=== PATIENT | female | born 1960 | race Caucasian/White ===

== ENCOUNTER → 2017-06-16 | Outpatient (CLI) | payer OTHER | LOC: M WUC 16:55 | DX: M25.551 Pain in right hip (principal) ==

== ENCOUNTER → 2017-09-04 | Outpatient (REF) | payer OTHER ==
[2017-09-04 21:49] LABS: AMORPHOUS SEDIMENT SMALL (NEGATIVE); APPEARANCE, URINE CLOUDY (CLEAR); BACTERIA, URINE AUTO 1+ (NEGATIVE); BILIRUBIN, URINE AUTO NEGATIVE (NEGATIVE); BLOOD, URINE BLOOD 3+ (NEGATIVE); COLOR, URINE YELLOW (YELLOW); GLUCOSE, URINE (UA) AUTO NEGATIVE (NEGATIVE); KETONE, URINE AUTO NEGATIVE (NEGATIVE); LEUKOCYTE ESTERASE, URINE AUTO 3+ (NEGATIVE); NITRITE, URINE AUTO NEGATIVE (NEGATIVE); PROTEIN, URINE AUTO 1+ mg/dL (NEGATIVE); RBC, URINE AUTO TNTC /HPF (0-3); SPECIFIC GRAVITY URINE AUTO 1.006 (1.002-1.035); SQUAMOUS EPITHELIAL CELL UR AU 2 /HPF (0-6); UROBILINOGEN, URINE AUTO 0.2 mg/dL (0.0-2.0); WBC, URINE AUTO TNTC /HPF (0-3)
== END ==
LOC: M LAB REF 09:23
DX: N39.0 Urinary tract infection, site not specified (principal)

== ENCOUNTER → 2017-10-16 | Outpatient (CLI) | payer OTHER | LOC: M WUC 16:27 | DX: J47.9 Bronchiectasis, uncomplicated (principal) ==

== ENCOUNTER → 2017-12-19 | Outpatient (REF) | payer OTHER | LOC: M LAB REF 18:04 | DX: R30.0 Dysuria (principal) ==

== ENCOUNTER → 2017-12-30 | Outpatient (CLI) | payer OTHER ==
[2017-12-30 10:37] LABS: HEMOGLOBIN 13.5 g/dl (12.0-15.5); MEAN CORPUSCULAR HEMOGLOBIN 28.8 pg (27.0-33.0); MEAN CORPUSCULAR HGB CONC 32.1 g/dl (32.0-36.5); MEAN CORPUSCULAR VOLUME 89.6 fl (80.0-96.0); PLATELET COUNT, AUTOMATED 261 10^3/uL (150-450); RED BLOOD COUNT 4.69 10^6/uL (4.00-5.40); RED CELL DISTRIBUTION WIDTH 13.2 % (11.5-14.5)
[2017-12-30 10:39] LABS: APPEARANCE, URINE CLEAR (CLEAR); BACTERIA, URINE AUTO NEGATIVE (NEGATIVE); BILIRUBIN, URINE AUTO NEGATIVE (NEGATIVE); BLOOD, URINE BLOOD NEGATIVE (NEGATIVE); COLOR, URINE STRAW (YELLOW); GLUCOSE, URINE (UA) AUTO NEGATIVE (NEGATIVE); KETONE, URINE AUTO NEGATIVE (NEGATIVE); LEUKOCYTE ESTERASE, URINE AUTO NEGATIVE (NEGATIVE); NITRITE, URINE AUTO NEGATIVE (NEGATIVE); PROTEIN, URINE AUTO NEGATIVE (NEGATIVE); RBC, URINE AUTO 0 /HPF (0-3); SPECIFIC GRAVITY URINE AUTO 1.005 (1.002-1.035); SQUAMOUS EPITHELIAL CELL UR AU 0 /HPF (0-6); UROBILINOGEN, URINE AUTO 0.2 mg/dL (0.0-2.0); WBC, URINE AUTO 0 /HPF (0-3)
[2017-12-30 11:01] LABS: ALBUMIN 3.9 GM/DL (3.2-5.2); ALBUMIN/GLOBULIN RATIO 1.34 (1.00-1.93); ALKALINE PHOSPHATASE 68 U/L (45-117); ALT/SGPT 25 U/L (12-78); ANION GAP 7 MEQ/L (8-16); AST/SGOT 27 U/L (7-37); BILIRUBIN,TOTAL 0.4 MG/DL (0.2-1.0); BLOOD UREA NITROGEN 12 MG/DL (7-18); CALCIUM LEVEL 9.1 MG/DL (8.5-10.1); CARBON DIOXIDE LEVEL 31 MEQ/L (21-32); CHLORIDE LEVEL 103 MEQ/L (98-107); CHOLESTEROL LEVEL 167 MG/DL (<200); CHOLESTEROL RISK RATIO 2.879 (<5); CREATININE FOR GFR 0.69 MG/DL (0.55-1.30); GLOMERULAR FILTRATION RATE > 60.0 (>51); GLUCOSE, FASTING 85 MG/DL (70-100); HDL CHOLESTEROL 58 MG/DL (>40); IRON (FE) 87 UG/DL (50-170); LDL CHOLESTEROL 92 MG/DL (<100); NON-HDL-C 109 MG/DL; SODIUM LEVEL 141 MEQ/L (136-145); TOTAL PROTEIN 6.8 GM/DL (6.4-8.2); TRIGLYCERIDES LEVEL 83 MG/DL (<150)
[2017-12-30 11:06] LABS: TOTAL 25(OH) VITAMIN D 17.4 NG/ML (30.0-100.0)
[2017-12-30 11:29] LABS: FOLATE 16.8 NG/ML (>5.4)
[2018-01-03 00:09] LABS: VITAMIN B1 LEVEL WHOLE BLOOD 57.3 nmol/L (66.5-200.0)
[2018-01-04 00:07] LABS: COPPER PLASMA 136 ug/dL (72-166); SELENIUM LEVEL BLOOD 176 ug/L (100-340); ZINC PLASMA 87 ug/dL (56-134)
== END ==
LOC: M WUC 08:40
DX: D69.3 Immune thrombocytopenic purpura (principal); Z98.84 Bariatric surgery status

== ENCOUNTER → 2018-01-03 | Outpatient (CLI) | payer OTHER | LOC: M WHC 12:41 | DX: Z12.31 Encounter for screening mammogram for malignant neoplasm of breast (principal); R92.0 Mammographic microcalcification found on diagnostic imaging of breast | CPT/HCPCS: 77067 ==

== ENCOUNTER → 2018-01-20 | Outpatient (CLI) | payer OTHER | LOC: M RAD 10:59 | DX: R92.1 Mammographic calcification found on diagnostic imaging of breast (principal) | CPT/HCPCS: 77065 ==

== ENCOUNTER → 2018-02-01 | Outpatient (CLI) | payer OTHER ==
[~2018-02-01] MED LIST: LIDOCAINE 1% MDV 20ML VIAL As Ordered
== END ==
LOC: M RADPRO 11:00
DX: R92.0 Mammographic microcalcification found on diagnostic imaging of breast (principal); D24.1 Benign neoplasm of right breast
CPT/HCPCS: 19081

== ENCOUNTER → 2018-02-06 | Outpatient (REF) | payer OTHER ==
[2018-02-06 21:28] LABS: APPEARANCE, URINE TURBID (CLEAR); BACTERIA, URINE AUTO NEGATIVE (NEGATIVE); BILIRUBIN, URINE AUTO NEGATIVE (NEGATIVE); BLOOD, URINE BLOOD 3+ (NEGATIVE); CALCIUM OXALATE CRYSTALS MODERATE; COLOR, URINE YELLOW (YELLOW); GLUCOSE, URINE (UA) AUTO 3+ mg/dL (NEGATIVE); KETONE, URINE AUTO NEGATIVE (NEGATIVE); LEUKOCYTE ESTERASE, URINE AUTO 3+ (NEGATIVE); NITRITE, URINE AUTO NEGATIVE (NEGATIVE); PROTEIN, URINE AUTO 1+ mg/dL (NEGATIVE); RBC, URINE AUTO TNTC /HPF (0-3); SPECIFIC GRAVITY URINE AUTO 1.012 (1.002-1.035); SQUAMOUS EPITHELIAL CELL UR AU 0 /HPF (0-6); UROBILINOGEN, URINE AUTO 0.2 mg/dL (0.0-2.0); WBC, URINE AUTO TNTC /HPF (0-3)
== END ==
LOC: M LAB REF 10:31
DX: N39.0 Urinary tract infection, site not specified (principal)

== ENCOUNTER → 2018-02-23 | Outpatient (REF) | payer OTHER | LOC: M SFHCPLAZ 13:19 | DX: Z12.4 Encounter for screening for malignant neoplasm of cervix (principal) | CPT/HCPCS: G0123 ==

== ENCOUNTER → 2018-03-02 | Outpatient (CLI) | payer OTHER | LOC: M SLEEP 19:23 | DX: G47.33 Obstructive sleep apnea (adult) (pediatric) (principal) | CPT/HCPCS: 95810 ==

== ENCOUNTER → 2018-03-03 | Outpatient (CLI) | payer OTHER | LOC: M RAD 15:17 | DX: Z87.440 Personal history of urinary (tract) infections (principal); K42.9 Umbilical hernia without obstruction or gangrene | CPT/HCPCS: 74176 ==

== ENCOUNTER → 2018-03-10 | Outpatient (REF) | payer OTHER ==
[~2018-03-10] MED LIST changes: +ACET500T15 PO; +CALCTAB93; -LIDOCAINE 1% MDV 20ML VIAL As Ordered; +MULT1TAB10 PO; +NATU400T PO; +PERCOCET PO; +SIMV10TA2 PO; +TYLE167L PO; +VIAC8.5C PO; +VITMTA PO
[2018-03-10 19:15] LABS: APPEARANCE, URINE CLEAR (CLEAR); BACTERIA, URINE AUTO 1+ (NEGATIVE); BILIRUBIN, URINE AUTO NEGATIVE (NEGATIVE); BLOOD, URINE BLOOD NEGATIVE (NEGATIVE); COLOR, URINE STRAW (YELLOW); GLUCOSE, URINE (UA) AUTO NEGATIVE (NEGATIVE); KETONE, URINE AUTO NEGATIVE (NEGATIVE); LEUKOCYTE ESTERASE, URINE AUTO NEGATIVE (NEGATIVE); NITRITE, URINE AUTO NEGATIVE (NEGATIVE); PROTEIN, URINE AUTO NEGATIVE (NEGATIVE); RBC, URINE AUTO 0 /HPF (0-3); SPECIFIC GRAVITY URINE AUTO 1.008 (1.002-1.035); SQUAMOUS EPITHELIAL CELL UR AU 0 /HPF (0-6); UROBILINOGEN, URINE AUTO 0.2 mg/dL (0.0-2.0); WBC, URINE AUTO 6 /HPF (0-3)
== END ==
LOC: M SMT 17:09
PROVIDERS: ATTEND Urology
DX: R31.0 Gross hematuria (principal)
CPT/HCPCS: 81001; 87086; 88108; G0463

== ENCOUNTER 2018-04-20 13:59 | Outpatient (RCR) | payer OTHER | END 2018-04-28 | LOC: M PT 13:59 | PROVIDERS: ATTEND Family Medicine | DX: N81.89 Other female genital prolapse (principal) ==

== ENCOUNTER 2018-05-04 14:15 | Outpatient (RCR) | payer OTHER | END 2018-05-26 | LOC: M PT 14:15 | PROVIDERS: ATTEND Family Medicine | DX: N81.89 Other female genital prolapse (principal) ==

== ENCOUNTER → 2018-11-09 | Outpatient (CLI) | payer OTHER ==
[~2018-11-09] MED LIST changes: -VIAC8.5C PO; +VIACTIV 500-5001 CHW PO
[2018-11-09 08:50] LABS: HEMATOCRIT 45.9 % (36.0-47.0); HEMOGLOBIN 15.1 g/dl (12.0-15.5); MEAN CORPUSCULAR HEMOGLOBIN 30.7 pg (27.0-33.0); MEAN CORPUSCULAR HGB CONC 32.9 g/dl (32.0-36.5); MEAN CORPUSCULAR VOLUME 93.3 fl (80.0-96.0); PLATELET COUNT, AUTOMATED 227 10^3/uL (150-450); RED BLOOD COUNT 4.92 10^6/uL (4.00-5.40); WHITE BLOOD COUNT 5.1 10^3/uL (4.0-10.0)
[2018-11-09 09:17] LABS: CHOLESTEROL LEVEL 199 MG/DL (<200); CHOLESTEROL RISK RATIO 2.689 (<5); HDL CHOLESTEROL 74 MG/DL (>40); IRON (FE) 95 UG/DL (50-170); LDL CHOLESTEROL 107 MG/DL (<100); NON-HDL-C 125 MG/DL; TRIGLYCERIDES LEVEL 91 MG/DL (<150)
[2018-11-09 09:32] LABS: TOTAL 25(OH) VITAMIN D 63.7 NG/ML (30.0-100.0); VITAMIN B12 LEVEL 623 PG/ML (247-911)
[2018-11-09 09:40] LABS: FOLATE > 24.0 NG/ML (>5.4)
[2018-11-12 08:06] LABS: VITAMIN B1 LEVEL WHOLE BLOOD 148.8 nmol/L (66.5-200.0)
== END ==
LOC: M WUC 08:09
PROVIDERS: ATTEND Family Medicine
DX: D69.3 Immune thrombocytopenic purpura (principal); Z98.84 Bariatric surgery status; Z13.220 Encounter for screening for lipoid disorders

== ENCOUNTER → 2019-01-17 | Outpatient (CLI) | payer OTHER ==
[~2019-01-17] MED LIST changes: +CALC600T5 PO; +CRAN450T4 PO; +POTA8CAP10 PO; +ROPI0.2534 PO; +VARE1TA PO; +VITA500030 PO
== END ==
LOC: M WUC 10:27
PROVIDERS: ATTEND Family Medicine
DX: Z00.00 Encounter for general adult medical examination without abnormal findings (principal); Z13.1 Encounter for screening for diabetes mellitus; Z23 Encounter for immunization; F17.200 Nicotine dependence, unspecified, uncomplicated; G25.81 Restless legs syndrome
CPT/HCPCS: 36415; 82947; 90471; 90732; G0463

== ENCOUNTER → 2019-01-18 | Outpatient (CLI) | payer OTHER ==
[~2019-01-18] MED LIST changes: -CALC600T5 PO; -CRAN450T4 PO; -POTA8CAP10 PO; -ROPI0.2534 PO; -VARE1TA PO; -VITA500030 PO
--- NOTE | 2019-01-18 19:28 | REP ---
Clinical: Shortness of breath. High risk factors. Technique: PA and lateral views of the chest. Comparison: 10/16/2017. Findings: Mediastinum and cardiac silhouette are normal. Lung luis demonstrate chronic interstitial changes and findings to suggest emphysematous disease. No focal consolidation, effusion, or pneumothorax. Skeletal structures demonstrate osteopenia and degenerative change. Impression: Chronic changes. No acute cardiopulmonary process appreciated. Electronically Signed by Logan Avendano MD 01/18/2019 07:19 P
== END ==
LOC: M WUC 18:48
PROVIDERS: ATTEND Physician Assistant
DX: R06.02 Shortness of breath (principal); Z72.0 Tobacco use; R30.0 Dysuria

== ENCOUNTER → 2019-01-18 | Outpatient (REF) | payer OTHER | LOC: M LAB REF 16:11 | PROVIDERS: ATTEND Physician Assistant | DX: R30.0 Dysuria (principal) ==

== ENCOUNTER → 2019-01-24 | Outpatient (CLI) | payer OTHER ==
[~2019-01-24] MED LIST changes: +CALC600T5 PO; +CRAN450T4 PO; +POTA8CAP10 PO; +ROPI0.2534 PO; +VARE1TA PO; +VITA500030 PO
--- NOTE | 2019-01-24 13:54 | REP ---
Clinical: Upper respiratory tract infection . Comparison: 01/18/2019 . Technique: PA and lateral. Findings: The mediastinum and cardiac silhouette are normal. The lung luis are clear and without acute consolidation, effusion, or pneumothorax. The skeletal structures are intact and normal. Impression: 1. No acute cardiopulmonary process. Electronically Signed by Logan Avendano MD 01/24/2019 01:45 P
== END ==
LOC: M WUC 13:36
PROVIDERS: ATTEND Family Medicine
DX: J06.9 Acute upper respiratory infection, unspecified (principal)
CPT/HCPCS: 71046; 87804; G0463

== ENCOUNTER → 2019-01-30 | Outpatient (CLI) | payer OTHER ==
[~2019-01-30] MED LIST changes: -CALC600T5 PO; -CRAN450T4 PO; -POTA8CAP10 PO; -ROPI0.2534 PO; -VARE1TA PO; -VITA500030 PO
--- NOTE | 2019-01-30 21:55 | ECGEPIP ---
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
== END ==
LOC: M EKG 16:16
PROVIDERS: ATTEND Surgery
DX: Z01.810 Encounter for preprocedural cardiovascular examination (principal); K42.0 Umbilical hernia with obstruction, without gangrene; R94.31 Abnormal electrocardiogram [ECG] [EKG]

== ENCOUNTER 2019-02-13 06:15 | Day surgery (SDC) | payer OTHER ==
[~2019-02-13] VITALS: Ht 154.9 cm; Wt 78.5 kg
[~2019-02-13 06:15] MED LIST changes: +CALC600T5 PO; +CRAN450T4 PO; +POTA8CAP10 PO; +ROPI0.2534 PO; +VARE1TA PO; +VITA500030 PO
[2019-02-13] MEDS ORDERED: LIDOCAINE 1% SDV INJ 30 ML VIAL As Ordered ONE (06:54)
[2019-02-13] MEDS ORDERED: BUPIVACAINE HCL 0.25% 10 ML VIAL As Ordered ONE (06:54)
[2019-02-13] MEDS ORDERED: BUPIVACAINE HCL 0.25% 30 ML VIAL As Ordered ONE (06:54)
[2019-02-13] MEDS ORDERED: BUPIVACAINE LIPOSOME/PF 1.3% 20ML VIAL (13.3MG/ML)(EXPAREL)(C9290 PER1MG) As Ordered ONE (06:55)
[2019-02-13] MEDS ORDERED: ceFAZolin SOD 2 GM in IV 1 EA IV ONE (07:00)
[2019-02-13] MEDS ORDERED: LR 1,000 ML IV ONE (07:00)
[2019-02-13 07:03] LABS: HEMATOCRIT 45.1 % (36.0-47.0); HEMOGLOBIN 14.2 g/dl (12.0-15.5); MEAN CORPUSCULAR HGB CONC 31.5 g/dl (32.0-36.5); MEAN CORPUSCULAR VOLUME 95.3 fl (80.0-96.0); PLATELET COUNT, AUTOMATED 208 10^3/uL (150-450); RED BLOOD COUNT 4.73 10^6/uL (4.00-5.40); WHITE BLOOD COUNT 4.6 10^3/uL (4.0-10.0)
[2019-02-13] MEDS ORDERED: KETOROLAC 60 MG/2 ML VIAL (J1885) As Ordered ONE (07:17)
[2019-02-13] MEDS ORDERED: LIDOCAINE 2% INJ 100 MG/5 ML SDV (FOR ANES.) As Ordered ONE (07:17)
[2019-02-13] MEDS ORDERED: PROPOFOL 200 MG/20 ML VIAL As Ordered ONE (07:17)
[2019-02-13] MEDS ORDERED: ROCURONIUM BROMIDE 50 MG/5 ML VIAL As Ordered ONE ×2 (07:17→08:33)
[2019-02-13] MEDS ORDERED: ACETAMINOPHEN 1000MG 100ML IV BTL (OFIRMEV) (J0131 PER 10MG) As Ordered ONE (07:17)
[2019-02-13] MEDS ORDERED: fentaNYL 250 MCG/5 ML INJECTION (J3010) As Ordered ONE (07:17)
[2019-02-13] MEDS ORDERED: MIDAZOLAM INJ 2 MG/2 ML VIAL (J2250) As Ordered ONE (07:17)
[2019-02-13] MEDS ORDERED: dexameTHASONE 4 MG/ML 1ML VIAL (J1100) As Ordered ONE (07:17)
[2019-02-13] MEDS ORDERED: LACRILUBE (AKWA TEARS) OPHTH OINT 3.5 GM As Ordered ONE (07:17)
[2019-02-13] MEDS ORDERED: ONDANSETRON 4MG/2ML VIAL (J2405) As Ordered ONE (07:17)
[2019-02-13 07:18] LABS: BLOOD UREA NITROGEN 15 MG/DL (7-18); CALCIUM LEVEL 9.3 MG/DL (8.5-10.1); CARBON DIOXIDE LEVEL 32 MEQ/L (21-32); CHLORIDE LEVEL 105 MEQ/L (98-107); GLOMERULAR FILTRATION RATE > 60.0 (>51); GLUCOSE, FASTING 87 MG/DL (70-100); POTASSIUM SERUM 3.7 MEQ/L (3.5-5.1); SODIUM LEVEL 140 MEQ/L (136-145)
[2019-02-13] MEDS ORDERED: GLYCOPYRROLATE INJ 0.2 MG/ML 2 ML VIAL As Ordered ONE (07:53)
[2019-02-13] MEDS ORDERED: ePHEDrine SULFATE 25 MG/5 ML(5MG/ML) SYRINGE As Ordered ONE (08:00)
[2019-02-13] MEDS ORDERED: SUGAMMADEX SODIUM 500 MG/5 ML VIAL (BRIDION) As Ordered ONE (08:01)
[2019-02-13] MEDS ORDERED: NORC1TAB7 PO (11:29)
[2019-02-13] MEDS ORDERED: KETOROLAC 30 MG/ML VIAL (J1885) IV PRN (12:00)
[2019-02-13] MEDS ORDERED: LR 1,000 ML IV SCH (12:00)
[2019-02-13] MEDS ORDERED: PERCOCET 5MG/325MG TAB PO PRN (12:00)
[2019-02-13] MEDS ORDERED: fentaNYL 100 MCG/2 ML INJECTION (J3010) IV PRN (12:00)
[2019-02-13] MEDS ORDERED: ONDANSETRON 4MG/2ML VIAL (J2405) IV PRN ×2 (12:00)
[2019-02-13] MEDS ORDERED: NORCO, ANEXSIA 5/325MG TABLET (HYDROcodone/ACETAMINOPHEN) PO PRN (12:00)
[2019-02-13 13:25] VITALS: BP 173/86
--- NOTE | 2019-02-13 15:55 | ROOPDOC ---
[facility] Report Of Operation Report of Operation DATE OF PROCEDURE: 02/13/19 PREPROCEDURE DIAGNOSES: recurrent umbilical hernia. POSTPROCEDURE DIAGNOSES: same. PROCEDURE: Robotic Assisted Laparoscopic Umbilical Hernia repair (eTEP Denise Alvarez). Ultrasound-guided bilateral transabdominal plain block with 1/4% marcaine and Exparel. SURGEON: Mayur Carrera MD NEGATIVE RESTORER: Adrianne Kiser NP ANESTHESIA: General anesthesia ESTIMATED BLOOD LOSS: Approximately 10 mL. COMPLICATIONS: none. REMARKS: Patient is brought in for a recurrent umbilical hernia. In 2016 she had an emergent surgery for a strangulated umbilical hernia which required resection of small bowel. The hernia was repaired primarily them without mesh. Soon after she noted recurrence she is complaining of symptoms and enlargement of the hernia.. PROCEDURE NOTE: 5x 3 cms hernia defect, minimal diastases on the upper abdomen at 3 cms, plication of the diastases and closure of the hernia defect(anterior fascia) done with 0 stratafix, A 15x15 cms Bard Soft of medium weight polypropylene mesh was placed at the retro-muscular space. DESCRIPTION OF PROCEDURE: Patient was given a dose of Ancef 2 g IV for prophylactic antibiotic. She is brought to the operating room, placed supine on the table. Sequential Compression boots placed on both lower extremities for DVT prophylaxis. General endotracheal anesthesia started. A Durán catheter placed for urine output monitoring. I used an ultrasound to nina externally on her skin the margins of the linea alba on both sides as well as the linea semilunaris on both sides. Under ultrasound guidance bilateral transabdominal plain blocks were performed with a mixture of 1/4% Marcaine and Exparel. She was repositioned on the bed with her umbilicus at the break of the bed and the bed was flexed to extend the space in between her subcostal margin and the anterior superior iliac spine. Her abdomen was then prepped and draped widely in usual sterile fashion.We paused for a surgical timeout using both pre-incision safety checklist to verify correct patient, procedure site and additional clinical information prior to beginning the procedure. Using the external markings medial to the linea semilunaris at the left upper quadrant area I made a small skin incision and dissected the subcutaneous tissue with a hemostat. Using a 5 mm optical trocar this was introduced under direct vision of a 5 mm laparoscope through to the anterior fascia past the rectus abdominis muscle until the posterior rectus sheath is identified and the angle of the trocar was adjusted to run tangentially at the posterior sheath and to bluntly dissect the filmy areolar tissues in between the rectus abdominis muscle and rectus sheath this area. Insufflation was then started to continue the retro-muscular dissection and further blunt dissection with the trocar under laparoscopic guidance was performed until the whole of the trocar was inserted. I continued bluntly dissecting the retro-muscular space inferiorly until an a dequate space 8 cm below the first trocar insertion was created and a robotic 8 mm trocar was introduced under direct vision. Using this 2 trochars I laparoscopically continue the preperitoneal dissection using a laparoscopic scissors connected to monopolar cautery to continue the dissection inferiorly and created a space for the third trocar inferiorly. The dissection was continue d until the pubis is visible. I then turned my attention upwards toward the costal margin and dissected around the previously placed upper 5 mm port and then converted this to an 8 mm robotic trocar. Once this was done the da Dinora robot tower was maneuvered in place and the trochars docked to the robot. When I was docking the third port, the trochar was angled quite acutely so I had to remove the third trocar and replace it much lateral to get a better angle and its trajectory via separate skin incisionI used a forceps bipolar forceps connected to bipolar cautery and a Sal-Cut scissors connected to monopolar cautery on my right hand and a 30 8 mm laparoscope pointed out ports. I scrubbed into console of the instruments and camera at the surgeon's console. I further develop my preperitoneal dissection on all 4 directions underneath the left rectus muscle and to expose the medial margin of the linea alba on the left side. I worked around the margins of the umbilical hernia with my speech language pathology assistant providing external pressure to locate the hernia. This area as expected have quite sticky tissues together and the previously placed Ethibond sutures were visible and cut. Once the left retrorectus space was fully developed I then turned my attention at the patient's epigastric area at about the level of the falciform ligament to perform a cross over to the other side. The rectus sheath was cut sharply about 1 cm from the linea alba. As I was developing the space the tissues remained sticky to one another and the typical fat pad at the epigastric area where the falciform ligament is located was not apparent and well-developed at all. The peritoneum was trimmed and I was trying to locate the right posterior sheath to enter the right retrorectus space and so on making a cut over the area where I thought the right posterior rectus sheath begins I inadvertently entered the abdomen with a small hole in this allowed some of the pneumoperitoneum to be released intra-abdominally limiting some of my space though I was able to continue with my dissection. I went up higher and eventually was able to locate the start of the right posterior rectus sheath and on making opening the right rectus muscles were identified. This was further developed up towards the xiphisternum. I continued developing the epigastric space underneath the linea alba coming down towards the umbilical hernia staying close to the peritoneum to conserve the peritoneum and hernia sac for later closure. I switched to the preperitoneal space above the umbilical ligaments and identified the arcuate ligament and opened up the transversalis fascia over here to enter the right retrorectus space on the bottom. This again was then developed going upwards toward the umbilical hernia.. As I approach the umbilical hernia had my speech language pathology assistant placed in the external pressure and I actually was able to bring down most of the hernia sac and dissected this from the subcutaneous tissue. The stalk of the umbilicus was identified and the sac trimmed away from this. The hernia sac was fully brought down from the subcutaneous tissue and the upper and lower dissections collected in both the preperitoneal midline spaces and the right retrorectus space. The round maintaining areolar tissue at the lateral margins of the right retrorectus space was mostly developed bluntly until the neurovascular bundles over the area where it attached to signify the full dissection of the right retrorectus space. I switched to a downward view of the laparoscope and examined my posterior sheath and peritoneum. There was 2 main defects ridge by the hernia sac and a couple of satellite defects close to went to the right side of this peritoneal defects. I trimmed the hernia sac so I will be able to patch the holes on both area adequately without tension. Using two 3- 0V LOCs the posterior peritoneal holes were closed using the salvaged hernia sac to breech them. I examined the excess hernia sac and noted another defect in the middle of it and this was closed with a pursestring suture of 2-0 Vicryl. The satellite holes that was previously identified was included in the closure and patching of the peritoneum and hernia sac. I examined the rest of the posterior sheath and peritoneum to make sure no other defects were created. I again switched to an upward view internal my attention to the anterior sheath defect. The main defect measures 5 cm vertically and 3.5 cm transversely with another smaller 1 x 1 cm defect just above it. She is at the widest a 3 cm diastases which was pretty minimal. I used a 0 Stratafix to close/plicate the diastases and the hernia defect starting well below the hernia defect and going up towards the epigastrium. As I was doing this the pneumoperitoneum was gradually decreased down to level of 8 mmHg while cinching the hernia closer and diastases. A second pass was made coming back towards the umbilical defect closure on the excess strap effects. I measured my retrorectus space and this appears to fit a 15 x 15 cm area adequately. Thus I chose a 15 x 15 cm medially weight polypropylene mesh that is uncoated (Bard Soft 15x 15 cms), I rounded the corners to accommodate the space that was created. I scrubbed back in and the robot was undocked and proceeded with laparoscopy for the rest of the procedure. The mesh was placed into the retrorectus space and laid flat abutting the posterior sheath. Tisseel fibrin glue was then used as an adjunct to keep the mesh in place. The pneumoperitoneum was gradually released while making sure the mesh remains flat. The incisions were then closed using 4-0 Monocryl in subcuticular fashion. Dermabond was then used for postoperative dressings. Patient was promptly awakened, extubated her Durán catheter was removed. She was brought to the recovery room in stable condition. MAYUR CARRERA MD Feb 13, 2019 15:55
== END 2019-02-13 13:37 | disposition home or self-care (01) ==
LOC: M SDC 06:15
PROVIDERS: ATTEND Surgery
DX: K42.9 Umbilical hernia without obstruction or gangrene (principal); G47.30 Sleep apnea, unspecified; I10 Essential (primary) hypertension; Z98.84 Bariatric surgery status; Z79.899 Other long term (current) drug therapy; Z88.8 Allergy status to other drugs, medicaments and biological substances; Z87.891 Personal history of nicotine dependence
CPT/HCPCS: 36415; 49652; 80048; 85027; A6024; C1781; C9290; J0131; J0690; J1100; J2250; J2405; J3010

== ENCOUNTER → 2019-03-17 | Outpatient (CLI) | payer OTHER ==
[~2019-03-17] MED LIST changes: +NORC1TAB7 PO; -SIMV10TA2 PO; +SIMV10TA21 PO
--- NOTE | 2019-03-17 11:06 | REPMRS ---
Patient History The patient states she has not had a clinical breast exam in over a year. Family history of breast cancer at age 50 or over in maternal grandmother, colorectal cancer at age 50 or over in maternal aunt. Benign radio exam breast specimen of the right breast, February 01, 2018. Benign stereotatic loc for ea lesion of the right breast, February 01, 2018. Took hormonal contraceptives for 11 months. Digital Woman Screen Mammo: March 17, 2019 - Exam #: [id number] Bilateral CC and MLO view(s) were taken. Technologists: Melba Carreon, Technologist; Rachael Robin, Prior study comparison: January 20, 2018, right breast digital mammo diagnostic unilateral, performed at [facility]. January 03, 2018, bilateral digital woman screen mammo performed at [facility]. May 14, 2015, digital woman screen mammo performed at [facility]. August 12, 2011, bilateral bilat screen digital mammo, performed at [facility] ([facility]). FINDINGS: There are scattered fibroglandular densities. The needle biopsy marker clip in the right breast unchanged from postbiopsy images. The previously noted microcalcifications are no longer visible. There has been no change in the appearance of the mammogram from the prior studies. There is a mild amount of scattered fibroglandular density which is fairly symmetric. There is no interval development of dominant mass, architectural distortion, or grouped microcalcification suggestive of malignancy. 3-D tomosynthesis shows no additional findings. Assessment: BI-RADS/ACR category 2 mammogram. Benign Findings. Recommendation Routine screening mammogram of both breasts in 1 year (for women over age 40). This patient's Lifetime Breast Cancer Risk is estimated at 11.1 %. This mammogram was interpreted with the aid of an FDA-approved computer-aided dectection system. Electronically Signed By: Riley Kruger MD 03/17/19 2901
== END ==
LOC: M WHC 10:20
PROVIDERS: ATTEND Family Medicine
DX: Z12.31 Encounter for screening mammogram for malignant neoplasm of breast (principal); Z80.3 Family history of malignant neoplasm of breast

== ENCOUNTER → 2019-04-13 | Outpatient (CLI) | payer OTHER ==
--- NOTE | 2019-04-14 04:27 | REP ---
Clinical: Lung screening. History smoking. Comparison: None Technique: Axial low-dose noncontrast images from the thoracic inlet to the upper abdomen using lung screening technique. Findings: The lung luis demonstrate early emphysematous changes. 1.5 mm density in the right apex (image 14) noted. No consolidation, significant nodule or mass lesion is appreciated. No pleural effusion/reaction or pneumothorax. Tracheobronchial tree is patent. Mediastinum demonstrates mild atherosclerotic changes of the coronary arteries without cardiomegaly. Impression: 1. Lung-RADS category II. No significant nodule or suspicious abnormality. Recommendations include annual low-dose CT surveillance. 2. Early emphysematous changes. Electronically Signed by Logan Avendano MD 04/14/2019 04:18 A
== END ==
LOC: M RAD 14:48
PROVIDERS: ATTEND Family Medicine
DX: Z12.2 Encounter for screening for malignant neoplasm of respiratory organs (principal); F17.200 Nicotine dependence, unspecified, uncomplicated

== ENCOUNTER → 2019-06-04 | Outpatient (REF) | payer OTHER | LOC: M LAB REF 17:50 | PROVIDERS: ATTEND Physician Assistant | DX: R30.0 Dysuria (principal) ==

== ENCOUNTER → 2020-01-31 | Outpatient (REF) | payer OTHER ==
[~2020-01-31] MED LIST changes: -CALC600T5 PO; +CALC600T61 PO
== END ==
LOC: M SFHCPLAZ 12:37
PROVIDERS: ATTEND Family Medicine
DX: Z53.9 Procedure and treatment not carried out, unspecified reason (principal); D69.3 Immune thrombocytopenic purpura; Z13.1 Encounter for screening for diabetes mellitus; Z13.220 Encounter for screening for lipoid disorders; Z98.890 Other specified postprocedural states

== ENCOUNTER → 2020-02-06 | Outpatient (CLI) | payer OTHER ==
[2020-02-06 08:58] LABS: HEMATOCRIT 48.7 % (36.0-47.0); MEAN CORPUSCULAR HEMOGLOBIN 29.7 pg (27.0-33.0); MEAN CORPUSCULAR HGB CONC 32.9 g/dl (32.0-36.5); MEAN CORPUSCULAR VOLUME 90.5 fl (80.0-96.0); PLATELET COUNT, AUTOMATED 257 10^3/uL (150-450); RED BLOOD COUNT 5.38 10^6/uL (4.00-5.40)
[2020-02-06 09:16] LABS: CHOLESTEROL LEVEL 185 MG/DL (<200); CHOLESTEROL RISK RATIO 2.466 (<5); HDL CHOLESTEROL 75 MG/DL (>40); IRON (FE) 117 UG/DL (50-170); LDL CHOLESTEROL 97 MG/DL (<100); NON-HDL-C 110 MG/DL; TRIGLYCERIDES LEVEL 64 MG/DL (<150)
[2020-02-06 09:21] LABS: HEMOGLOBIN A1c 5.5 %
[2020-02-06 09:26] LABS: TOTAL 25(OH) VITAMIN D 66.4 NG/ML (30.0-100.0); VITAMIN B12 LEVEL 557 PG/ML
[2020-02-08 13:08] LABS: FOLATE > 24.0 NG/ML
== END ==
LOC: M LAB 07:48
PROVIDERS: ATTEND Family Medicine
DX: D69.3 Immune thrombocytopenic purpura (principal); Z98.890 Other specified postprocedural states

== ENCOUNTER → 2020-03-12 | Outpatient (CLI) | payer OTHER ==
--- NOTE | 2020-03-12 10:39 | REPMRS ---
Patient History The patient states she has not had a clinical breast exam in over a year. Family history of breast cancer at age 50 or over in maternal grandmother, colorectal cancer at age 50 or over in maternal aunt. Benign radio exam breast specimen of the right breast, February 01, 2018. Benign stereotatic loc for ea lesion of the right breast, February 01, 2018. Took hormonal contraceptives for 11 months. Digital Woman Screen Mammo: March 12, 2020 - Exam #: [id number] Bilateral CC and MLO view(s) were taken. Technologist: Pinky Kimbrough, Technologist Prior study comparison: March 17, 2019, bilateral digital woman screen mammo performed at [facility]. January 20, 2018, right breast digital mammo diagnostic unilateral, performed at [facility]. January 03, 2018, bilateral digital woman screen mammo performed at [facility]. May 14, 2015, digital woman screen mammo performed at [facility]. FINDINGS: There are scattered fibroglandular densities. The Volpara volumetric breast density category is:B. There is a needle biopsy marker clip in the right breast. There has been no change in the appearance of the mammogram from the prior studies. There is a mild amount of scattered fibroglandular density which is fairly symmetric. There is no interval development of dominant mass, architectural distortion, or grouped microcalcification suggestive of malignancy. 3-D tomosynthesis shows no additional findings. Assessment: BI-RADS/ACR category 2 mammogram. Benign Findings. Recommendation Routine screening mammogram of both breasts in 1 year (for women over age 40). This patient's [facility] Lifetime Breast Cancer Risk is estimated at 10.7 %. This mammogram was interpreted with the aid of an FDA-approved computer-aided dectection system. Electronically Signed By: Riley Kruger MD 03/12/20 1038
== END ==
LOC: M WHC 09:44
PROVIDERS: ATTEND Family Medicine
DX: Z12.31 Encounter for screening mammogram for malignant neoplasm of breast (principal); Z86.018 Personal history of other benign neoplasm; Z97.8 Presence of other specified devices

== ENCOUNTER → 2020-06-17 | Outpatient (CLI) | payer OTHER ==
--- NOTE | 2020-06-17 15:30 | REP ---
INDICATION: LUNG SCREENING. COMPARISON: Comparison screening chest CT study 13 April 2019.. TECHNIQUE: Low-dose screening exam. Helical scanning is acquired. 3 mm axial images are provided at lung only windows. FINDINGS: No evidence of infiltrate mass or significant pulmonary nodule is seen in the lung luis. No pleural or pericardial effusion is observed. The patient appears to be status post cholecystectomy and gastric bypass. Minimal vascular calcification is present. IMPRESSION: Stable lung RADS category 2 benign findings. Repeat screening exam suggested in 1 year. <Electronically signed by Riley Kruger > 06/17/20 1520
== END ==
LOC: M RAD 13:39
PROVIDERS: ATTEND Family Medicine
DX: Z12.2 Encounter for screening for malignant neoplasm of respiratory organs (principal)

== ENCOUNTER 2020-10-19 14:19 | Emergency (ER) | payer OTHER ==
[~2020-10-19] VITALS: Ht 154.9 cm; Wt 81.8 kg
[~2020-10-19 14:19] MED LIST changes: -ALBU83IN NEB; -BENA25CA4 PO; -CEPH500C PO; -PEPC1TAB5 PO; -PRED20TA PO
[2020-10-19] MEDS ORDERED: ALBUTEROL SULFATE 2.5 MG/0.5 ML INH NEB SOLN INH ONE (15:05)
[2020-10-19] MEDS ORDERED: IPRATROPIUM 0.5MG/ALBUTEROL 2.5MG INH SOL UD 3ML (DUONEB) NEB ONE ×2 (15:05→18:20)
[2020-10-19] MEDS ORDERED: FAMOTIDINE INJ 20MG/2ML VIAL (S0028 PER 1) IVP ONE (15:10)
[2020-10-19] MEDS ORDERED: diphenhydrAMINE 50MG/ML VIAL (J1200) IV STA (15:10)
--- NOTE | 2020-10-19 15:25 | REP ---
INDICATION: sob. COMPARISON: Comparison chest x-ray January 24, 2019.. TECHNIQUE: Sitting AP portable chest x-ray. FINDINGS: The lungs are symmetrically aerated and free of focal infiltrate. Pleural angles are sharp. Heart size is normal. Cardiomediastinal silhouette is unremarkable. Pulmonary vasculature is not increased. EKG electrodes are seen. IMPRESSION: No active disease. <Electronically signed by Riley Kruger > 10/19/20 [id number]
[2020-10-19 17:55] LABS: BASO % 0.3 % (0.0-1.0); EOS % 0.1 % (0.0-3.0); HEMATOCRIT 48.6 % (36.0-47.0); HEMOGLOBIN 16.1 g/dl (12.0-15.5); LYMPH # 0.2 10^3/uL (1.5-5.0); LYMPH % 1.4 % (24.0-44.0); MEAN CORPUSCULAR HEMOGLOBIN 29.6 pg (27.0-33.0); MEAN CORPUSCULAR HGB CONC 33.1 g/dl (32.0-36.5); MEAN CORPUSCULAR VOLUME 89.3 fl (80.0-96.0); MONO # 0.3 10^3/uL (0.0-0.8); MONO % 2.8 % (2.0-8.0); NEUTROPHILS # 11.4 10^3/uL (1.5-8.5); NEUTROPHILS % 95.1 % (36.0-66.0); PLATELET COUNT, AUTOMATED 216 10^3/uL (150-450); RED BLOOD COUNT 5.44 10^6/uL (4.00-5.40); WHITE BLOOD COUNT 11.9 10^3/uL (4.0-10.0)
[2020-10-19 18:13] LABS: BLOOD UREA NITROGEN 11 MG/DL (7-18); CALCIUM LEVEL 9.2 MG/DL (8.8-10.2); CARBON DIOXIDE LEVEL 25 MEQ/L (21-32); CHLORIDE LEVEL 106 MEQ/L (98-107); CPK CREATINE PHOSPHOKINASE 126 U/L (26-192); GLOMERULAR FILTRATION RATE > 60.0 (>45); GLUCOSE, FASTING 135 MG/DL (70-100); MB/CK RELATIVE INDEX 0.79 (< OR =4); NT-PRO BNP 41 PG/ML (<125); POTASSIUM SERUM 3.8 MEQ/L (3.5-5.1); SODIUM LEVEL 140 MEQ/L (136-145); TROPONIN I < 0.02 NG/ML (< 0.10)
[2020-10-19] MEDS ORDERED: ALBU83IN NEB (18:21)
[2020-10-19] MEDS ORDERED: PRED20TA PO (18:22)
[2020-10-19] MEDS ORDERED: PEPC1TAB5 PO (18:23)
[2020-10-19] MEDS ORDERED: BENA25CA4 PO (18:24)
[2020-10-19] MEDS ORDERED: CEPH500C PO (19:18)
--- NOTE | 2020-10-19 21:35 | ECGEPIP ---
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
[2020-10-19 22:04] VITALS: BP 132/68
== END 2020-10-19 22:09 | disposition home or self-care (01) ==
LOC: M ED 14:19
DX: R06.00 Dyspnea, unspecified (principal); T78.40XA Allergy, unspecified, initial encounter; F17.200 Nicotine dependence, unspecified, uncomplicated; I10 Essential (primary) hypertension; Z88.8 Allergy status to other drugs, medicaments and biological substances; R30.0 Dysuria
CPT/HCPCS: 71045; 80048; 82550; 82553; 83880; 84484; 85025; 87086; 93005; 94640; 96374; 99285; J1200

== ENCOUNTER → 2020-10-19 | Outpatient (REF) | payer OTHER ==
[~2020-10-19] MED LIST changes: +ALBU83IN NEB; +BENA25CA4 PO; +CEPH500C PO; +PEPC1TAB5 PO; +PRED20TA PO
== END ==
LOC: M LAB REF 18:45
PROVIDERS: ATTEND Nurse Practitioner Family
DX: R30.0 Dysuria (principal)

== ENCOUNTER → 2020-10-21 | Outpatient (CLI) | payer OTHER ==
[~2020-10-21] MED LIST changes: +ALBU83IN NEB; +BENA25CA4 PO; +CEPH500C PO; +PEPC1TAB5 PO; +PRED20TA PO
[2020-10-21 11:04] LABS: HEMATOCRIT 45.7 % (36.0-47.0); MEAN CORPUSCULAR HEMOGLOBIN 29.8 pg (27.0-33.0); MEAN CORPUSCULAR HGB CONC 32.8 g/dl (32.0-36.5); MEAN CORPUSCULAR VOLUME 90.9 fl (80.0-96.0); PLATELET COUNT, AUTOMATED 240 10^3/uL (150-450); RED BLOOD COUNT 5.03 10^6/uL (4.00-5.40); WHITE BLOOD COUNT 8.9 10^3/uL (4.0-10.0)
[2020-10-21 11:16] LABS: HEMOGLOBIN A1c 5.4 %
[2020-10-21 11:41] LABS: CHOLESTEROL RISK RATIO 2.179 (<5); FOLATE 22.9 NG/ML (>5.4)
== END ==
LOC: M WUC 08:26
PROVIDERS: ATTEND Family Medicine
DX: Z98.84 Bariatric surgery status (principal); D69.3 Immune thrombocytopenic purpura; Z13.1 Encounter for screening for diabetes mellitus

== ENCOUNTER → 2020-12-25 | Outpatient (CLI) | payer OTHER ==
--- NOTE | 2020-12-25 15:14 | DEXAMM ---
INDICATION: SCREENING OSTEOPOROSIS. COMPARISON: December 12, 2007. TECHNIQUE: Bone density was measured using dual-energy x-ray absorptionmetry (DEXA). FINDINGS: AP SPINE L1-L4 BMD 0.962 g/cm2 Young Adult T-Score -1.9 Age Matched Z-Score -0.6. LT FEMUR, TOTAL BMD 0.921 g/cm2 Young Adult T-Score -0.7 Age Matched Z-Score 0.3. LT NECK BMD 0.842 g/cm2 Young Adult T-Score -1.4 Age Matched Z-Score -0.1. RT FEMUR, TOTAL BMD 0.834 g/cm2 Young Adult T-Score -1.4 Age Matched Z-Score -0.4. RT NECK BMD 0.807 g/cm2 Young Adult T-Score -1.7 Age Matched Z-Score -0.4. IMPRESSION: There is low bone density of the spine. There is low bone density of the left hip. There is low bone density of the right hip. The density of the spine has decreased 24.1% since the initial exam on December 12, 2007. The density of the left hip has decreased 17.3% since initial exam on December 12, 2007. The density of the right hip has decreased 25.5% since the initial exam on December 12, 2007. FOLLOW-UP: Recommendation for the next bone density exam: 2 years. <Electronically signed by Riley Kruger > 12/25/20 [id number]
== END ==
LOC: M WHC 12:55
PROVIDERS: ATTEND Family Medicine
DX: Z13.820 Encounter for screening for osteoporosis (principal); M85.88 Other specified disorders of bone density and structure, other site; M85.851 Other specified disorders of bone density and structure, right thigh; M85.852 Other specified disorders of bone density and structure, left thigh

== ENCOUNTER → 2021-10-21 | Outpatient (REF) | payer OTHER ==
[~2021-10-21] MED LIST changes: +ALBU2.5V10 NEB; -ALBU83IN NEB
== END ==
LOC: M WUC 11:29
PROVIDERS: ATTEND Student in an Organized Health Care Education/Training Program
DX: R30.0 Dysuria (principal)

== ENCOUNTER → 2021-12-10 | Outpatient (CLI) | payer OTHER | LOC: M LABSMTC 10:02 | PROVIDERS: ATTEND Anesthesiology | DX: Z01.818 Encounter for other preprocedural examination (principal); Z11.52 Encounter for screening for COVID-19 ==

== ENCOUNTER 2021-12-15 09:11 | Day surgery (SDC) | payer OTHER ==
[~2021-12-15] VITALS: Ht 152.4 cm; Wt 67.6 kg
[~2021-12-15 09:11] MED LIST changes: +LIDOCAINE 2% 100MG/5ML SDV (FOR ANES.) As Ordered ONE; +NS 1,000 ML IV ONE; +propofoL 200 MG/20 ML VIAL As Ordered ONE
[2021-12-15] MEDS ORDERED: propofoL 200 MG/20 ML VIAL As Ordered ONE (11:57)
[2021-12-15 12:41] VITALS: BP 124/59
== END 2021-12-15 12:45 | disposition home or self-care (01) ==
LOC: M OPP 09:11
PROVIDERS: ATTEND Surgery
DX: Z12.11 Encounter for screening for malignant neoplasm of colon (principal); Z86.010 Personal history of colon polyps; D12.2 Benign neoplasm of ascending colon; D12.3 Benign neoplasm of transverse colon; D12.4 Benign neoplasm of descending colon; D12.5 Benign neoplasm of sigmoid colon; D12.8 Benign neoplasm of rectum; K64.9 Unspecified hemorrhoids; K57.30 Diverticulosis of large intestine without perforation or abscess without bleeding; Z79.1 Long term (current) use of non-steroidal anti-inflammatories (NSAID); Z79.2 Long term (current) use of antibiotics; Z79.52 Long term (current) use of systemic steroids; Z79.891 Long term (current) use of opiate analgesic; Z79.899 Other long term (current) drug therapy; Z88.1 Allergy status to other antibiotic agents; Z88.8 Allergy status to other drugs, medicaments and biological substances; F17.200 Nicotine dependence, unspecified, uncomplicated; G47.30 Sleep apnea, unspecified; Z99.89 Dependence on other enabling machines and devices; Z98.84 Bariatric surgery status; Z86.19 Personal history of other infectious and parasitic diseases; Z86.2 Personal history of diseases of the blood and blood-forming organs and certain disorders involving the immune mechanism

== ENCOUNTER → 2021-12-16 | Outpatient (CLI) | payer OTHER ==
[~2021-12-16] MED LIST changes: -LIDOCAINE 2% 100MG/5ML SDV (FOR ANES.) As Ordered ONE; -NS 1,000 ML IV ONE; -propofoL 200 MG/20 ML VIAL As Ordered ONE
== END ==
LOC: M RAD 12:25
PROVIDERS: ATTEND Family Medicine
DX: Z12.2 Encounter for screening for malignant neoplasm of respiratory organs (principal); F17.210 Nicotine dependence, cigarettes, uncomplicated

== ENCOUNTER → 2021-12-31 | Outpatient (CLI) | payer OTHER ==
[2021-12-31 12:44] LABS: BASO # 0.1 10^3/uL (0.0-0.2); EOS # 0.1 10^3/uL (0.0-0.5); EOS % 1.1 % (0.0-3.0); HEMATOCRIT 50.5 % (36.0-47.0); HEMOGLOBIN 16.2 g/dl (12.0-15.5); LYMPH # 1.8 10^3/uL (1.5-5.0); LYMPH % 33.5 % (24.0-44.0); MEAN CORPUSCULAR HEMOGLOBIN 29.1 pg (27.0-33.0); MEAN CORPUSCULAR HGB CONC 32.1 g/dl (32.0-36.5); MEAN CORPUSCULAR VOLUME 90.7 fl (80.0-96.0); MONO # 0.4 10^3/uL (0.0-0.8); MONO % 7.2 % (2.0-8.0); PLATELET COUNT, AUTOMATED 257 10^3/uL (150-450); RED BLOOD COUNT 5.57 10^6/uL (4.00-5.40); WHITE BLOOD COUNT 5.3 10^3/uL (4.0-10.0)
[2021-12-31 15:27] LABS: BLOOD UREA NITROGEN 15 MG/DL (7-18); CALCIUM LEVEL 9.9 MG/DL (8.8-10.2); CARBON DIOXIDE LEVEL 30 MEQ/L (21-32); CHLORIDE LEVEL 104 MEQ/L (98-107); CHOLESTEROL LEVEL 216 MG/DL (<200); CHOLESTEROL RISK RATIO 2.373 (<5); CREATININE FOR GFR 0.81 MG/DL (0.55-1.30); GLOMERULAR FILTRATION RATE > 60.0 (>45); GLUCOSE, FASTING 98 MG/DL (70-100); HDL CHOLESTEROL 91 MG/DL (>40); IRON (FE) 112 UG/DL (50-170); LDL CHOLESTEROL 107 MG/DL (<100); NON-HDL-C 125 MG/DL; PERCENT SATURATION 25.3 % (13.2-45.0); SODIUM LEVEL 138 MEQ/L (136-145); TOTAL IRON BINDING CAPACITY 443 UG/DL (250-450); TRIGLYCERIDES LEVEL 89 MG/DL (<150)
[2022-01-02 15:30] LABS: VITAMIN B12 LEVEL 282 PG/ML (247-911)
== END ==
LOC: M WUC 09:25
PROVIDERS: ATTEND Student in an Organized Health Care Education/Training Program
DX: D69.3 Immune thrombocytopenic purpura (principal); E55.9 Vitamin D deficiency, unspecified; Z98.84 Bariatric surgery status

== ENCOUNTER → 2022-01-14 | Outpatient (REF) | payer OTHER | LOC: M LAB REF 12:23 | PROVIDERS: ATTEND Physician Assistant | DX: R30.0 Dysuria (principal) ==

== ENCOUNTER → 2022-12-04 | Outpatient (CLI) | payer OTHER | LOC: M WHC 10:14 | PROVIDERS: ATTEND Family Medicine | DX: Z12.31 Encounter for screening mammogram for malignant neoplasm of breast (principal); Z53.9 Procedure and treatment not carried out, unspecified reason ==

== ENCOUNTER → 2022-12-10 | Outpatient (CLI) | payer OTHER ==
[2022-12-10 13:47] LABS: HEMATOCRIT 49.3 % (36.0-47.0); HEMOGLOBIN 15.7 g/dl (12.0-15.5); MEAN CORPUSCULAR HGB CONC 31.8 g/dl (32.0-36.5); MEAN CORPUSCULAR VOLUME 91.1 fl (80.0-96.0); PLATELET COUNT, AUTOMATED 256 10^3/uL (150-450); RED BLOOD COUNT 5.41 10^6/uL (4.00-5.40); WHITE BLOOD COUNT 5.9 10^3/uL (4.0-10.0)
[2022-12-10 14:05] LABS: HEMOGLOBIN A1c 5.5 % (4.0-6.0)
[2022-12-10 14:09] LABS: TOTAL 25(OH) VITAMIN D 44.9 NG/ML (20.0-100.0)
[2022-12-10 14:11] LABS: CHOLESTEROL RISK RATIO 2.38 (<5); HDL CHOLESTEROL 84.7 MG/DL (>40); LDL CHOLESTEROL 97.7 MG/DL (<100); NON-HDL-C 117.3 MG/DL
[2022-12-14 12:11] LABS: VITAMIN A, RETINOL LEVEL 49.1 ug/dL (22.0-69.5); VITAMIN E(ALPHA TOCOPHEROL) 10.6 mg/L (9.0-29.0); VITAMIN E(GAMMA TOCOPHEROL) 0.9 mg/L (0.5-4.9)
== END ==
LOC: M PLALAB 08:10
PROVIDERS: ATTEND Student in an Organized Health Care Education/Training Program
DX: Z12.31 Encounter for screening mammogram for malignant neoplasm of breast (principal); E78.00 Pure hypercholesterolemia, unspecified; Z98.84 Bariatric surgery status; G47.33 Obstructive sleep apnea (adult) (pediatric); Z13.1 Encounter for screening for diabetes mellitus

== ENCOUNTER → 2023-01-04 | Outpatient (REF) | payer OTHER | LOC: M SFHCPLAZ 15:01 | PROVIDERS: ATTEND Student in an Organized Health Care Education/Training Program | DX: Z12.4 Encounter for screening for malignant neoplasm of cervix (principal) ==

== ENCOUNTER → 2023-09-21 | Outpatient (REF) | payer OTHER ==
[~2023-09-21] MED LIST changes: -ROPI0.2534 PO; +ROPI25TA PO
== END ==
LOC: M SFHCPLAZ 09:16
PROVIDERS: ATTEND Family Medicine
DX: D69.3 Immune thrombocytopenic purpura (principal); Z00.00 Encounter for general adult medical examination without abnormal findings; Z13.1 Encounter for screening for diabetes mellitus; E78.00 Pure hypercholesterolemia, unspecified; Z98.84 Bariatric surgery status

== ENCOUNTER → 2023-09-21 | Outpatient (CLI) | payer OTHER ==
[2023-09-21 12:54] LABS: BASO # 0.1 10^3/uL (0.0-0.2); BASO % 1.3 % (0.0-1.0); EOS # 0.1 10^3/uL (0.0-0.5); EOS % 1.1 % (0.0-3.0); HEMATOCRIT 46.9 % (36.0-47.0); HEMOGLOBIN 15.8 g/dl (12.0-15.5); LYMPH # 1.6 10^3/uL (1.5-5.0); LYMPH % 30.6 % (24.0-44.0); MEAN CORPUSCULAR HEMOGLOBIN 29.7 pg (27.0-33.0); MEAN CORPUSCULAR HGB CONC 33.7 g/dl (32.0-36.5); MEAN CORPUSCULAR VOLUME 88.2 fl (80.0-96.0); MONO # 0.4 10^3/uL (0.0-0.8); MONO % 7.8 % (2.0-8.0); NEUTROPHILS # 3.1 10^3/uL (1.5-8.5); PLATELET COUNT, AUTOMATED 257 10^3/uL (150-450); RED BLOOD COUNT 5.32 10^6/uL (4.00-5.40); WHITE BLOOD COUNT 5.3 10^3/uL (4.0-10.0)
[2023-09-21 13:00] LABS: ALBUMIN 3.8 G/DL (3.2-5.2); ALKALINE PHOSPHATASE 69 U/L (46-116); ALT/SGPT 14 U/L (7.0-40); AST/SGOT 20 U/L (<34); BILIRUBIN,TOTAL 0.5 MG/DL (0.3-1.2); BLOOD UREA NITROGEN 15 MG/DL (9-23); CALCIUM LEVEL 9.7 MG/DL (8.3-10.6); CARBON DIOXIDE LEVEL 31 MMOL/L (20-31); CHLORIDE LEVEL 106 MMOL/L (98-107); CHOLESTEROL LEVEL 187 MG/DL (<200); CHOLESTEROL RISK RATIO 2.59 (<5); CREATININE FOR GFR 0.71 MG/DL (0.55-1.30); GLOMERULAR FILTRATION RATE > 60.0 (>45); GLUCOSE, FASTING 92 MG/DL (74-106); HDL CHOLESTEROL 72.2 MG/DL (>40); NON-HDL-C 114.8 MG/DL; SODIUM LEVEL 141 MMOL/L (136-145); TOTAL PROTEIN 6.3 G/DL (5.7-8.2); TRIGLYCERIDES LEVEL 79 MG/DL (<150)
[2023-09-21 13:02] LABS: TOTAL 25(OH) VITAMIN D 35.9 NG/ML (20.0-100.0)
[2023-09-21 13:07] LABS: HEMOGLOBIN A1c 5.1 % (4.0-6.0)
== END ==
LOC: M PLALAB 09:29
PROVIDERS: ATTEND Student in an Organized Health Care Education/Training Program
DX: Z00.00 Encounter for general adult medical examination without abnormal findings (principal); D69.3 Immune thrombocytopenic purpura; Z13.1 Encounter for screening for diabetes mellitus; E78.00 Pure hypercholesterolemia, unspecified; Z98.84 Bariatric surgery status

== ENCOUNTER 2023-12-01 06:57 | Day surgery (SDC) | payer OTHER ==
[~2023-12-01] VITALS: Ht 154.9 cm; Wt 68.0 kg
[~2023-12-01 06:57] MED LIST changes: +VARE1TAB2 PO
[2023-12-01] MEDS: NS 1,000 ML IV ONE (07:22)
[2023-12-01] MEDS ORDERED: propofoL 500 MG/50 ML VIAL As Ordered ONE (08:35)
[2023-12-01] MEDS ORDERED: LIDOCAINE 2% 100MG/5ML SDV (FOR ANES.) As Ordered ONE (08:35)
[2023-12-01 08:41] VITALS: TEMP 97
[2023-12-01 09:10] VITALS: BP 140/73; O2SAT 98
== END 2023-12-01 12:45 | disposition home or self-care (01) ==
LOC: M OPP 06:57
PROVIDERS: ATTEND Surgery
DX: Z12.11 Encounter for screening for malignant neoplasm of colon (principal); Z86.010 Personal history of colon polyps; D12.6 Benign neoplasm of colon, unspecified; K64.9 Unspecified hemorrhoids; K57.30 Diverticulosis of large intestine without perforation or abscess without bleeding; F17.200 Nicotine dependence, unspecified, uncomplicated; G47.33 Obstructive sleep apnea (adult) (pediatric); Z99.89 Dependence on other enabling machines and devices; Z88.0 Allergy status to penicillin; Z88.1 Allergy status to other antibiotic agents; Z88.8 Allergy status to other drugs, medicaments and biological substances; Z79.899 Other long term (current) drug therapy

== ENCOUNTER → 2023-12-13 | Outpatient (CLI) | payer OTHER | LOC: M WHC 07:31 | PROVIDERS: ATTEND Student in an Organized Health Care Education/Training Program | DX: Z12.31 Encounter for screening mammogram for malignant neoplasm of breast (principal) ==

== ENCOUNTER → 2024-07-11 | Outpatient (CLI) | payer MEDICARE, OTHER | LOC: M RAD 06:13 | PROVIDERS: ATTEND Student in an Organized Health Care Education/Training Program | DX: Z87.891 Personal history of nicotine dependence (principal) ==

== ENCOUNTER → 2024-10-30 | Outpatient (CLI) | payer MEDICARE, OTHER | LOC: M SLEEP 20:00 | PROVIDERS: ATTEND Physician Assistant | DX: G47.33 Obstructive sleep apnea (adult) (pediatric) (principal) ==

== ENCOUNTER → 2024-11-03 | Outpatient (CLI) | payer MEDICARE, OTHER | LOC: M WUC 11:45 | PROVIDERS: ATTEND Student in an Organized Health Care Education/Training Program | DX: M16.11 Unilateral primary osteoarthritis, right hip (principal) ==

== ENCOUNTER → 2024-11-24 | Outpatient (CLI) | payer MEDICARE, OTHER ==
[2024-11-28 05:27] LABS: RUBEOLA IgG ANTIBODY 49.2 AU/mL (>16.49)
== END ==
LOC: M PLALAB 16:18
PROVIDERS: ATTEND Student in an Organized Health Care Education/Training Program
DX: Z02.1 Encounter for pre-employment examination (principal)

== ENCOUNTER → 2024-11-28 | Outpatient (CLI) | payer MEDICARE, OTHER | LOC: M WHC 08:33 | PROVIDERS: ATTEND Family Medicine | DX: Z13.820 Encounter for screening for osteoporosis (principal); M81.0 Age-related osteoporosis without current pathological fracture; M85.89 Other specified disorders of bone density and structure, multiple sites ==